=== PATIENT | female | born 1965 | race Caucasian/White ===

== ENCOUNTER 2017-02-21 07:09 | Day surgery (SDC) | payer OTHER ==
[~2017-02-21 07:09] MED LIST: VESTURA 3 MG-01 EAC1 PO
[2017-02-21 08:05] LABS: ALB/GLOB RATIO 0.9 (0.8-2.0); ALBUMIN 3.4 g/dl (3.5-5.0); ALKALINE PHOSPHATASE 47 U/L (33-138); ALT/SGPT 17 U/L (12-78); ANION GAP 10 mmol/L (0-20); AST/SGOT 15 U/L (10-40); BILIRUBIN,TOTAL 0.3 mg/dl (0-1.5); BLOOD UREA NITROGEN 12 mg/dl (6-24); CARBON DIOXIDE-VENOUS 29 mmol/L (22-32); CHLORIDE 106 mmol/l (96-110); CREATININE 0.91 mg/dl (0.50-1.10); GLUCOSE 85 mg/dL (70-110); POTASSIUM 3.9 mmol/L (3.7-5.1); SODIUM 141 mmol/L (135-145); eGFR VALUE FOR BLACK 83 mL/Min
[2017-02-22] MEDS ORDERED: PERCOCET 5-3251 EACH PO (02:18)
== END 2017-02-22 09:40 ==
LOC: SHSC 07:09 → ORW 08:57 → PACU 10:24 → OBGF 11:15
PROVIDERS: Obstetrics & Gynecology
PROC: 0UT94ZZ Resection of Uterus, Percutaneous Endoscopic Approach (ICD-10-PCS; principal; 2017-02-21)
PROC: 0UTC4ZZ Resection of Cervix, Percutaneous Endoscopic Approach (ICD-10-PCS; 2017-02-21)
PROC: 0UT24ZZ Resection of Bilateral Ovaries, Percutaneous Endoscopic Approach (ICD-10-PCS; 2017-02-21)
PROC: 0UT74ZZ Resection of Bilateral Fallopian Tubes, Percutaneous Endoscopic Approach (ICD-10-PCS; 2017-02-21)
PROC: 8E0W4CZ Robotic Assisted Procedure of Trunk Region, Percutaneous Endoscopic Approach (ICD-10-PCS; 2017-02-21)
DX: D25.1 Intramural leiomyoma of uterus (principal); N80.0 Endometriosis of uterus; D50.0 Iron deficiency anemia secondary to blood loss (chronic); M19.90 Unspecified osteoarthritis, unspecified site; Z79.899 Other long term (current) drug therapy; Z91.048 Other nonmedicinal substance allergy status; Z98.890 Other specified postprocedural states
CPT/HCPCS: J0690; J7030; J7121